=== PATIENT | female | born 1985 | race Two or more races ===

== ENCOUNTER 2019-01-02 19:29 | Emergency (ER) | payer MEDICAID ==
--- NOTE | 2019-01-02 20:28 | ED Physician Chart ---
ED Chief Complaint/HPI - Patient Information Date Seen:: 01/02/19 Time Seen:: 20:10 Chief Complaint:: abdominal pain History of Present Illness:: Patient developed right-sided abdominal pain at the level of the umbilicus at 1600 today. No vomiting or diarrhea. Patient had chills this morning. She did not take her temperature. No dysuria. Allergies:: Allergies Allergy/AdvReac Type Severity Reaction Status Date / Time metoclopramide [From Reglan] Allergy Verified 01/02/19 19:47 NSAIDS (Non-Steroidal Allergy Verified 01/02/19 19:47 Anti-Inflamma Vitals:: Vital Signs - 8 hr 01/02/19 19:35 Temp 99.4 F HR 84 RR 18 BP 120/79 O2 Sat % 100 Historian:: Patient Review:: Nurse's Note Reviewed ED Review of Systems - Review of Systems General/Constitutional: Chills Skin: No skin lesions Head: No headache Eyes: No loss of vision ENT: No earache Neck: No neck pain, No swelling Cardio Vascular: No chest pain Pulmonary: No SOB GI: Pain Musculoskeletal: No bone or joint pain, No back pain, No muscle pain Endocrine: No polyuria, No polydipsia Psychiatric: No prior psych history Hematopoietic: No bruising, No lymphadenopathy Allergic/Immuno: No urticaria Neurological: No syncope, No focal symptoms ED Past Medical History - Past Medical History Past Medical History: Other (anxiety) Family History: Diabetes Melitus, HTN Social History: Non Smoker, No Alcohol Surgical History: other ( section) Psychiatricy History: Other (anxiety) Medication: Reviewed Family Medical History - Family Member Mother History Unknown: Yes Hx Family Diabetes: Yes ED Physical Exam - Physical Examination General/Constitutional: Awake, Well-developed, well-nourished, Alert, No distress Head: Atraumatic Eyes: Lids, conjuctiva normal, PERRL Skin: Nl inspection, No rash, No skin lesions, No ecchymosis ENMT: External ears, nose nl, TM canals nl, Nasal exam nl, Lips, teeth, gums nl , Oropharynx nl, Tonsils nl Neck: No nuchal rigidity Respiratory: Nl effort/Exclusion, Clear to Auscultation, No Wheeze/Rhonchi/Rales Cardio Vascular: RRR, No murmur, gallop, rubs, NL S1 S2 GI: No organomegaly, No hernia, Normal BS's, Nondistended, No mass/bruits Other GI comments:: Right-sided tenderness at level of the umbilicus; milder right lower quadrant tenderness : No CVA tenderness Neuro/Psych: No focal deficits ED Labs/Radiology/EKG Results - Lab Results Results: Laboratory Results WBC 6.9 Th/cmm (4.8-10.8) 01/02/19 20:32 RBC 4.56 Mil/cmm (3.80-5.10) 01/02/19 20:32 Hgb 13.6 gm/dL (12-16) 01/02/19 20:32 Hct 41.3 % (41.0-60) 01/02/19 20:32 MCV 90.4 fl (81-100) 01/02/19 20:32 MCH 29.9 pg (27.0-31.0) 01/02/19 20:32 MCHC Differential 33.1 pg (28.0-36.0) 01/02/19 20:32 RDW 12.4 % (11.5-20.0) 01/02/19 20:32 Plt Count 201 Th/cmm (150-400) 01/02/19 20:32 MPV 8.6 fl 01/02/19 20:32 Neutrophils % 67.4 % (40.0-80.0) 01/02/19 20:32 Lymphocytes % 23.3 % (20.0-50.0) 01/02/19 20:32 Monocytes % 7.7 % (2.0-10.0) 01/02/19 20:32 Eosinophils % 1.1 % (0.0-5.0) 01/02/19 20:32 Basophils % 0.5 % (0.0-2.0) 01/02/19 20:32 Sodium 137 mEq/L (136-145) 01/02/19 20:32 Potassium 3.4 mEq/L (3.5-5.1) L 01/02/19 20:32 Chloride 103 mEq/L (98-107) 01/02/19 20:32 Carbon Dioxide 23.0 mEq/L (21.0-31.0) 01/02/19 20:32 Anion Gap 14.4 (7.0-16.0) 01/02/19 20:32 BUN 10 mg/dL (7-25) 01/02/19 20:32 Creatinine 0.7 mg/dL (0.6-1.2) 01/02/19 20:32 Est GFR ( Amer) > 60.0 ml/min (>90) 01/02/19 20:32 Est GFR (Non-Af Amer) > 60.0 ml/min 01/02/19 20:32 BUN/Creatinine Ratio 14.3 01/02/19 20:32 Glucose 94 mg/dL (70-105) 01/02/19 20:32 Calcium 9.6 mg/dL (8.6-10.3) 01/02/19 20:32 Magnesium 2.0 mg/dL (1.9-2.7) 01/02/19 20:32 Urine Source RANDOM 01/02/19 19:50 Urine Color YELLOW 01/02/19 19:50 Urine Clarity HAZY (CLEAR) 01/02/19 19:50 Urine pH 6.0 (4.6 - 8.0) 01/02/19 19:50 Ur Specific [place] 1.010 (1.005-1.030) 01/02/19 19:50 Urine Protein NEGATIVE mg/dL (NEGATIVE) 01/02/19 19:50 Urine Glucose (UA) NEGATIVE mg/dL (NEGATIVE) 01/02/19 19:50 Urine Ketones 15 mg/dL (NEGATIVE) H 01/02/19 19:50 Urine Blood TRACE (NEGATIVE) 01/02/19 19:50 Urine Nitrate NEGATIVE (NEGATIVE) 01/02/19 19:50 Urine Bilirubin NEGATIVE (NEGATIVE) 01/02/19 19:50 Urine Urobilinogen 0.2 E.U./dL (0.2 - 1.0) 01/02/19 19:50 Ur Leukocyte Esterase NEGATIVE (NEGATIVE) 01/02/19 19:50 Urine RBC 0-2 /hpf (0-5) 01/02/19 19:50 Urine WBC 2-5 /hpf (0-5) 01/02/19 19:50 Ur Epithelial Cells FEW /lpf (FEW) 01/02/19 19:50 Urine Bacteria FEW /hpf (NONE SEEN) 01/02/19 19:50 Urine Test NEGATIVE 01/02/19 19:50 ED Assessment - Assessment General Assessment: Patient was reexamined at about 2220. Patient's pain was improved. Patient had no tenderness on the right side at the level of the umbilicus; she had mild tenderness right lower quadrant without guarding. A few moments later she no longer had right lower quadrant tenderness. Ultrasound showed a live a gap that is not suggestive for appendicitis. She is also afebrile and her white blood cell count is normal temperature both of which are against the diagnosis of appendicitis. ED Septic Shock - . Is Septic Shock (SBP<90, OR Lactate>4 mmol\L) present?: No - <6hrs of presentation: Vital Signs: Vital Signs - 8 hr 01/02/19 19:35 Temp 99.4 F HR 84 RR 18 BP 120/79 O2 Sat % 100 ED Reassessment (Disposition) - Reassessment Reassessment Condition:: Improved - Diagnosis Diagnosis:: Gastritis - Aftercare/Follow up Instructions Aftercare/Follow-Up Instructions:: Refer to Discharge Instructions - Patient Disposition Discharge/Transfer:: Home Condition at Disposition:: Stable, Improved
[2019-01-02 20:36] LABS: URINE SOURCE RANDOM
[2019-01-02 20:39] LABS: % BASOPHILS 0.5 % (0.0-2.0); % EOSINOPHILS 1.1 % (0.0-5.0); % LYMPHOCYTES 23.3 % (20.0-50.0); % MONOCYTES 7.7 % (2.0-10.0); % NEUTROPHILS 67.4 % (40.0-80.0); EOSINOPHILE ABSOLUTE 0.1 Th/cmm (0.1-0.4); HEMATOCRIT 41.3 % (41.0-60); HEMOGLOBIN 13.6 gm/dL (12-16); LYMPHOCYTE ABSOLUTE 1.6 Th/cmm (1.5-3.0); MEAN CELL VOLUME 90.4 fl (81-100); MEAN CORPUSCULAR HEMOGLOBIN 29.9 pg (27.0-31.0); MEAN CORPUSCULAR HGB CONC 33.1 pg (28.0-36.0); MEAN PLATELET VOLUME 8.6 fl; MONOCYTE ABSOLUTE 0.5 Th/cmm (0.3-1.0); NEUTROPHILE ABSOLUTE 4.7 Th/cmm (1.8-8.0); PLATELET COUNT 201 Th/cmm (150-400); RED BLOOD COUNT 4.56 Mil/cmm (3.80-5.10); RED CELL DISTRIBUTION WIDTH 12.4 % (11.5-20.0); WHITE BLOOD COUNT 6.9 Th/cmm (4.8-10.8)
[2019-01-02] MEDS ORDERED: Maalox 30 mL Cup ONE (20:51)
[2019-01-02] MEDS: Maalox 30 mL Cup PO ONE (20:52)
[2019-01-02 20:53] LABS: ANION GAP 14.4 (7.0-16.0); BUN - UREA NITROGEN 10 mg/dL (7-25); CALCIUM SERUM 9.6 mg/dL (8.6-10.3); CHLORIDE 103 mEq/L (98-107); CREATININE - SERUM 0.7 mg/dL (0.6-1.2); GFR AFRICAN-AMERICAN > 60.0 ml/min (>90); GFR NON AFRICAN-AMERICAN > 60.0 ml/min; GLUCOSE 94 mg/dL (70-105); POTASSIUM SERUM 3.4 mEq/L (3.5-5.1); SODIUM SERUM 137 mEq/L (136-145)
[2019-01-02 21:06] LABS: URINE BILIRUBIN NEGATIVE (NEGATIVE); URINE BLOOD TRACE (NEGATIVE); URINE GLUCOSE (UA) NEGATIVE (NEGATIVE); URINE KETONE 15 mg/dL (NEGATIVE); URINE LEUKOCYTE ESTERASE NEGATIVE (NEGATIVE); URINE MICROSCOPIC INDICATED? YES; URINE NITRATE NEGATIVE (NEGATIVE); URINE PROTEIN NEGATIVE (NEGATIVE); URINE UROBILINOGEN 0.2 E.U./dL (0.2 - 1.0)
[2019-01-02 21:36] LABS: URINE CLARITY HAZY (CLEAR); URINE COLOR YELLOW
[2019-01-02 21:37] LABS: URINE BACTERIA FEW /hpf (NONE SEEN); URINE EPITHELIAL CELLS FEW /lpf (FEW); URINE RBC 0-2 /hpf (0-5)
--- NOTE | 2019-01-03 09:03 | Diagnostic Imaging Report ---
Abdominal ultrasound HISTORY: Pain The liver exhibits a homogeneous parenchyma. No focal lesions. The gallbladder appears normal. No calculi are seen. No biliary dilatation. No abnormality seen in the region of the pancreas. Mild fullness of the right renal pelvis. No lizzie hydronephrosis. No other focal lesions. The left kidney appears normal. The spleen is normal in size. No other retroperitoneal or intra-abdominal abnormalities. IMPRESSION: 1. Essentially negative examination.
== END 2019-01-02 22:40 | disposition home or self-care (01) ==
LOC: ER 19:29
DX: K29.70 Gastritis, unspecified, without bleeding (principal); Z88.8 Allergy status to other drugs, medicaments and biological substances
CPT/HCPCS: 99284; 76700; 36415; 85025; 81001; 81025; 83735; 80048; Q0162

== ENCOUNTER 2019-03-28 16:29 | Emergency (ER) | payer MEDICAID ==
[2019-03-28 17:12] LABS: % BASOPHILS 0.1 % (0.0-2.0); % EOSINOPHILS 1.8 % (0.0-5.0); % LYMPHOCYTES 19.5 % (20.0-50.0); % MONOCYTES 8.4 % (2.0-10.0); % NEUTROPHILS 70.2 % (40.0-80.0); EOSINOPHILE ABSOLUTE 0.2 Th/cmm (0.1-0.4); HEMATOCRIT 38.6 % (41.0-60); LYMPHOCYTE ABSOLUTE 1.7 Th/cmm (1.5-3.0); MEAN CELL VOLUME 91.5 fl (81-100); MEAN CORPUSCULAR HEMOGLOBIN 30.8 pg (27.0-31.0); MEAN CORPUSCULAR HGB CONC 33.7 pg (28.0-36.0); MONOCYTE ABSOLUTE 0.7 Th/cmm (0.3-1.0); NEUTROPHILE ABSOLUTE 6.2 Th/cmm (1.8-8.0); PLATELET COUNT 233 Th/cmm (150-400); RED BLOOD COUNT 4.22 Mil/cmm (3.80-5.10); RED CELL DISTRIBUTION WIDTH 12.4 % (11.5-20.0); WHITE BLOOD COUNT 8.8 Th/cmm (4.8-10.8)
[2019-03-28 17:26] LABS: INR 1.03 (0.5-1.4)
[2019-03-28 17:28] LABS: DDIMER QUANT < 100 ng/mL (100-400)
[2019-03-28 17:36] LABS: ALB/GLOB RATIO 1.6 (1.0-1.8); ALBUMIN 4.5 gm/dL (3.7-5.3); ALKALINE PHOSPHATASE 61 U/L (34-104); ANION GAP 11.8 (7.0-16.0); BILIRUBIN,TOTAL 0.3 mg/dL (0.3-1.0); BUN - UREA NITROGEN 9 mg/dL (7-25); CALCIUM SERUM 9.4 mg/dL (8.6-10.3); CARBON DIOXIDE 23.8 mEq/L (21.0-31.0); CHLORIDE 100 mEq/L (98-107); CHOLESTEROL 119 mg/dL (<200); CREATININE - SERUM 0.6 mg/dL (0.6-1.2); CREATININE KINASE 112 U/L (30-223); GFR AFRICAN-AMERICAN > 60.0 ml/min (>90); GFR NON AFRICAN-AMERICAN > 60.0 ml/min; GLUCOSE 99 mg/dL (70-105); HDL -HIGH DENSITY LIPOPROTEIN 61 mg/dL (23-92); POTASSIUM SERUM 3.6 mEq/L (3.5-5.1); SGOT 13 U/L (13-39); SGPT/ALT 10 U/L (7-52); SODIUM SERUM 132 mEq/L (136-145); TOTAL PROTEIN,SERUM 7.3 gm/dL (6.0-8.3); TRIGLYCERIDES 47 mg/dL (<150)
--- NOTE | 2019-03-28 17:45 | ED Physician Chart ---
ED Chief Complaint/HPI - Patient Information Date Seen:: 03/28/19 Time Seen:: 16:35 Chief Complaint:: Dysphagia History of Present Illness:: onset x 3 days of dysphagia, chest pain, and dyspnea; pt denies trauma, H/As, S/ T, neck pain, Abd. pain, A/n/V/D/c, fever, chills, or urinary s/s Allergies:: Allergies Allergy/AdvReac Type Severity Reaction Status Date / Time metoclopramide [From Reglan] Allergy Verified 01/02/19 19:47 NSAIDS (Non-Steroidal Allergy Verified 01/02/19 19:47 Anti-Inflamma Vitals:: Vital Signs - 8 hr 03/28/19 03/28/19 16:36 16:43 Temp 99.2 F 99.2 F HR 93 95 RR 20 22 BP 129/90 129/90 O2 Sat % 100 Historian:: Patient, Family Member Review:: Nurse's Note Reviewed, Old Chart Reviewed ED Review of Systems - Review of Systems General/Constitutional: No fever, No chills, No weight loss, No weakness, No diaphoresis, No edema, No loss of appetite Skin: No skin lesions, No rash, No bruising Head: No headache, No light-headedness Eyes: No loss of vision, No pain, No diplopia ENT: No earache, No nasal drainage, No sore throat, No tinnitus Neck: No neck pain, No swelling, No thyromegaly, No stiffness, No mass noted Cardio Vascular: No chest pain, No palpitations, No PND, No orthopnea, No edema Pulmonary: No SOB, No cough, No sputum, No wheezing GI: No nausea, No vomiting, No diarrhea, No pain, No melena, No hematochezia, No constipation, No hematemesis G/U: No dysuria, No frequency, No hematuria, No nacturia [employer] Technician: No vaginal discharge, No abnormal vaginal bleed, No contraction Musculoskeletal: No bone or joint pain, No back pain, No muscle pain Endocrine: No polyuria, No polydipsia Psychiatric: No prior psych history, No depression, No anxiety, No suicidal ideation, No homicidal ideation, No auditory hallucination, No visual hallucination Hematopoietic: No bruising, No lymphadenopathy Allergic/Immuno: No urticaria, No angioedema Neurological: No syncope, No focal symptoms, No weakness, No paresthesia, No headache, No seizure, No dizziness, No confusion, No vertigo ED Past Medical History - Past Medical History Obtainable: Yes Past Medical History: PUD/GERD Family History: HTN Social History: Non Smoker, No Alcohol, No Drug Use, Surgical History: None Psychiatricy History: None Medication: Reviewed Family Medical History - Family Member Mother History Unknown: Yes Hx Family Diabetes: Yes ED Physical Exam - Physical Examination General/Constitutional: Awake, Well-developed, well-nourished, Alert, No distress, GCS 15, Non-toxic appearing, Ambulatory Head: Atraumatic Eyes: Lids, conjuctiva normal, PERRL, EOMI Skin: Nl inspection, No rash, No skin lesions, No ecchymosis, Well hydrated, No lymphadenopathy ENMT: External ears, nose nl, TM canals nl, Nasal exam nl, Lips, teeth, gums nl , Oropharynx nl, Tonsils nl Other ENMT comments:: no FBs; no airway obstruction Neck: Nontender, Full ROM w/o pain, No JVD, No nuchal rigidity, No bruit, No mass, No stridor Other Neck comments:: supple; no meningeal signs; no cervical tenderness; no bruits Respiratory: Nl effort/Exclusion, Clear to Auscultation, No Wheeze/Rhonchi/Rales Cardio Vascular: RRR, No murmur, gallop, rubs, NL S1 S2, Carotid/Femoral/Distal pulses equal bilaterally GI: No tenderness/rebounding/guarding, No organomegaly, No hernia, Normal BS's, Nondistended, No mass/bruits, No McBurney tenderness Other GI comments:: no pulsatile masses : No CVA tenderness Extremities: No tenderness or effusion, Full ROM, normal strength in all extremities, No edema, Normal digits & nails Neuro/Psych: Alert/oriented, DTR's symmetric, Normal sensory exam, Normal motor strength, Judgement/insight normal, Mood normal, Normal gait, No focal deficits Misc: Normal back, No paraspinal tenderness ED Labs/Radiology/EKG Results - Lab Results Results: Laboratory Tests 03/28/19 03/28/19 03/28/19 17:00 17:00 17:00 WBC 8.8 RBC 4.22 Hgb 13.0 Hct 38.6 L MCV 91.5 MCH 30.8 MCHC Differential 33.7 RDW 12.4 Plt Count 233 MPV 8.6 Neutrophils % 70.2 Lymphocytes % 19.5 L Monocytes % 8.4 Eosinophils % 1.8 Basophils % 0.1 PT 10.7 INR 1.03 D-Dimer Sodium 132 L Potassium 3.6 Chloride 100 Carbon Dioxide 23.8 Anion Gap 11.8 BUN 9 Creatinine 0.6 Est GFR ( Amer) > 60.0 Est GFR (Non-Af Amer) > 60.0 BUN/Creatinine Ratio 15.0 Glucose 99 Calcium 9.4 Total Bilirubin 0.3 AST 13 ALT 10 Alkaline Phosphatase 61 Creatine Kinase Troponin I B-Natriuretic Peptide Total Protein 7.3 Albumin 4.5 Globulin 2.8 Albumin/Globulin Ratio 1.6 Triglycerides 47 Cholesterol 119 LDL Cholesterol Direct 54 L HDL Cholesterol 61 Serum , Qual 03/28/19 03/28/19 03/28/19 17:00 17:00 17:00 WBC RBC Hgb Hct MCV MCH MCHC Differential RDW Plt Count MPV Neutrophils % Lymphocytes % Monocytes % Eosinophils % Basophils % PT INR D-Dimer < 100 L Sodium Potassium Chloride Carbon Dioxide Anion Gap BUN Creatinine Est GFR ( Amer) Est GFR (Non-Af Amer) BUN/Creatinine Ratio Glucose Calcium Total Bilirubin AST ALT Alkaline Phosphatase Creatine Kinase 112 Troponin I < 0.01 L B-Natriuretic Peptide 9.9 Total Protein Albumin Globulin Albumin/Globulin Ratio Triglycerides Cholesterol LDL Cholesterol Direct HDL Cholesterol Serum , Qual 03/28/19 17:00 WBC RBC Hgb Hct MCV MCH MCHC Differential RDW Plt Count MPV Neutrophils % Lymphocytes % Monocytes % Eosinophils % Basophils % PT INR D-Dimer Sodium Potassium Chloride Carbon Dioxide Anion Gap BUN Creatinine Est GFR ( Amer) Est GFR (Non-Af Amer) BUN/Creatinine Ratio Glucose Calcium Total Bilirubin AST ALT Alkaline Phosphatase Creatine Kinase Troponin I B-Natriuretic Peptide Total Protein Albumin Globulin Albumin/Globulin Ratio Triglycerides Cholesterol LDL Cholesterol Direct HDL Cholesterol Serum , Qual NEGATIVE Comments:: Reviewed - Radiology Results Comments:: CXR: COPD; NAD - EKG Interpretations EKG Time:: 16:59 Rate & Rhythm: 83; NSR Comments:: non-specific st-t changes ED Septic Shock - . Is Septic Shock (SBP<90, OR Lactate>4 mmol\L) present?: No - <6hrs of presentation: Vital Signs: Vital Signs - 8 hr 03/28/19 03/28/19 16:36 16:43 Temp 99.2 F 99.2 F HR 93 95 RR 20 22 BP 129/90 129/90 O2 Sat % 100 ED Reassessment (Disposition) - Reassessment Reassessment Condition:: Improved - Diagnosis Diagnosis:: Chest Pain; Atypical Chest Pain; Dyspnea; Dysphagia; GERD; HTN
[2019-03-28 19:27] LABS: URINE SOURCE CLEAN C
[2019-03-28 19:46] LABS: URINE BILIRUBIN NEGATIVE (NEGATIVE); URINE BLOOD NEGATIVE (NEGATIVE); URINE CLARITY CLEAR (CLEAR); URINE COLOR YELLOW; URINE GLUCOSE (UA) NEGATIVE (NEGATIVE); URINE KETONE 15 mg/dL (NEGATIVE); URINE LEUKOCYTE ESTERASE NEGATIVE (NEGATIVE); URINE MICROSCOPIC INDICATED? YES; URINE NITRATE NEGATIVE (NEGATIVE); URINE PROTEIN NEGATIVE (NEGATIVE); URINE UROBILINOGEN 0.2 E.U./dL (0.2 - 1.0)
[2019-03-28 19:51] LABS: URINE EPITHELIAL CELLS FEW /lpf (FEW); URINE RBC 0-2 /hpf (0-5)
[2019-03-28 19:52] LABS: URINE BACTERIA FEW /hpf (NONE SEEN)
--- NOTE | 2019-03-29 09:41 | Diagnostic Imaging Report ---
Chest x-ray single view History: Chest pain Comparison: None The heart size is normal. No focal pulmonary parenchymal processes. No hilar or mediastinal abnormalities. Impression: No acute abnormalities
--- NOTE | 2019-03-29 09:41 | Diagnostic Imaging Report ---
Exam: CT examination soft tissue neck HISTORY: Shortness of breath throughout pain Total DLP equals 22 2 CTDI equals 8.1 Findings: Multiple contiguous thin section of the neck were obtained without administration of contrast material in axial plane with coronal and sagittal reconstruction technique. The study is limited without contrast administration. No evidence of abnormal masses or calcifications. No abnormal adenopathy is noted but difficult to appreciated without contrast material. There is no evidence of for soft tissue swelling. The upper airways intact. The piriform sinuses and vallecula normal. The epiglottis is intact. IMPRESSION: Normal examination of the neck. The study without contrast administration.
== END 2019-03-28 20:43 | disposition home or self-care (01) ==
LOC: ER 16:29
DX: K21.9 Gastro-esophageal reflux disease without esophagitis (principal); I10 Essential (primary) hypertension; R07.89 Other chest pain; R13.10 Dysphagia, unspecified; R06.00 Dyspnea, unspecified; Z88.6 Allergy status to analgesic agent; Z88.8 Allergy status to other drugs, medicaments and biological substances
CPT/HCPCS: 36415-UA; 70490-TC; 71045-TC; 80053-TC; 80061-TC; 81001-TC; 82550-TC; 83880-TC; 84484-TC; 84703-TC; 85025-TC; 85379-TC; 85610-TC; 93005